=== PATIENT | female | born 1995 | race Caucasian/White ===

== ENCOUNTER 2016-08-11 11:05 | Emergency (ER) | payer OTHER | END 2016-08-11 15:26 | disposition home or self-care (01) | LOC: ER 11:05 | DX: M54.42 Lumbago with sciatica, left side (principal) ==

== ENCOUNTER 2016-08-17 12:22 | Emergency (ER) | payer OTHER | END 2016-08-17 13:35 | disposition home or self-care (01) | LOC: ER 12:22 | DX: R10.31 Right lower quadrant pain (principal); M54.9 Dorsalgia, unspecified; R11.0 Nausea; F17.210 Nicotine dependence, cigarettes, uncomplicated ==